=== PATIENT | male | born 1955 | race Caucasian/White ===

== ENCOUNTER 2020-12-12 11:33 | Inpatient (IN) | payer MEDICARE, MEDICAID ==
[~2020-12-12] VITALS: Ht 175.3 cm; Wt 52.1 kg
[2020-12-12 12:38] LABS: MEAN CORPUSCULAR HGB CONC 33.7 g/dL (33.2-36.2); MEAN PLATELET VOLUME 8.9 fL (7.4-10.4); PLATELET COUNT 207 x10^3/uL (130-400); RED CELL DISTRIBUTION WIDTH 13.3 % (9.4-14.8)
[2020-12-12 12:50] LABS: ANION GAP 8 mmol/L (5-15); CALCIUM 8.5 mg/dL (8.5-10.1); CHLORIDE 95 mmol/L (98-107)
[2020-12-12 13:00] LABS: ALANINE AMINOTRANSFERASE 21 U/L (12-78); ALKALINE PHOSPHATASE 48 U/L (45-117); BILIRUBIN,TOTAL 0.9 mg/dL (0.2-1.0); TOTAL PROTEIN 7.2 g/dL (6.4-8.2)
[2020-12-12 13:07] LABS: C-REACTIVE PROTEIN, QUANT > 19.00 mg/dL (0.02-0.49)
[2020-12-12 13:15] LABS: BAND#(MANUAL) 4.03 x10^3/uL; BANDS%(MANUAL) 37 % (0-7); LYMPH#(MANUAL) 0.22 x10^3/uL (1-3.4); LYMPHS% (MANUAL) 2 % (22-44); METAMYELOCYTES# (MANUAL) 0.87 x10^3/uL (0-0); METAMYELOCYTES% (MANUAL) 8 % (0-1); MONOS#(MANUAL) 0.33 x10^3/uL (0.3-2.7); MONOS% (MANUAL) 3 % (2-9); SEG#(MANUAL) 5.45 x10^3/uL (1.8-6.8); SEGS% (MANUAL) 50 % (42-75)
[2020-12-12 13:16] LABS: <PLATELET ESTIMATE> ADEQUATE; <PLT MORPHOLOGY> NORMAL PLT MORPH; <RBC MORPHOLOGY> NORMAL
[2020-12-12] MEDS ORDERED: AZITHROMYCIN 500 MG in SODIUM CHLORIDE 0.9% 250 ML IV ONE (13:39)
--- NOTE | 2020-12-12 13:41 | NUR ---
customer consulting manager note: Pt to room from [facility] peralta.
[2020-12-12] MEDS ORDERED: SODIUM CHLORIDE FLUSH 10ML SYR IVF ONE (14:00)
[2020-12-12] MEDS ORDERED: CEFTRIAXONE 1,000 MG in DEXTROSE 5% 50 ML IVPB ONE (14:00)
--- NOTE | 2020-12-12 15:00 | NUR ---
PT RESTING IN BED, PT A/O X4 WITH EQUAL AND UNLABORED BREATHS.. PT AWARE OF ED CARE PLAN. PT DENIED ANY CURRENT WANTS OR NEEDS.
[2020-12-12] MEDS ORDERED: TRAZODONE 50MG TABLET PO PRN (16:00)
[2020-12-12] MEDS ORDERED: ACETAMINOPHEN 325 MG TABLET PO PRN (16:00)
[2020-12-12] MEDS ORDERED: POTASSIUM CHLORIDE 20 MEQ TAB.ER.PRT PO ONE (16:00)
[2020-12-12] MEDS ORDERED: ONDANSETRON 2MG/ML, 2ML IVPush PRN (16:00)
[2020-12-12] MEDS ORDERED: CEFTRIAXONE 1,000 MG IM ONE (16:00)
[2020-12-12] MEDS ORDERED: POLYETHYLENE GLYCOL 17 GM PACKET PO PRN (16:00)
[2020-12-12] MEDS ORDERED: MELATONIN 5 MG TABLET PO PRN (16:00)
[2020-12-12] MEDS ORDERED: SODIUM CHLORIDE 0.9%, 500ML IVBOLUS ONE (16:00)
[2020-12-12] MEDS ORDERED: HYDROcodone/APAP 5/325 TABLET PO PRN (16:00)
[2020-12-12 16:14] LABS: HCT (SEDRATE) 40.9 % (39.2-51.8)
[2020-12-12 16:29] LABS: TROPONIN I < 0.015 ng/mL (0.000-0.045)
[2020-12-12] MEDS ORDERED: ENOXAPARIN 40 MG/0.4 ML ONE (16:39)
[2020-12-12] MEDS ORDERED: POTASSIUM CHLORIDE 20 MEQ TAB.ER.PRT ONE (16:39)
[2020-12-12 16:50] LABS: TROPONIN I < 0.015 ng/mL (0.000-0.045)
[2020-12-12] MEDS: ENOXAPARIN 40 MG/0.4 ML SQ SCH (16:52)
--- NOTE | 2020-12-12 18:50 | NUR ---
PT MEDICATED PER MAR
--- NOTE | 2020-12-12 19:29 | NUR ---
Note michelle in EDM - 12/12/20 at 1931 by JORGE PT RESTING IN BED, PT A/O X4 WITH EQUAL AND UNLABORED BREATHS.. PT AWARE OF ED CARE PLAN. PT DENIED ANY CURRENT WANTS OR NEEDS. PT SHOWING NO SIGNS OF REACTION.
--- NOTE | 2020-12-12 19:31 | NUR ---
PT RESTING IN BED, PT A/O X4 WITH EQUAL AND UNLABORED BREATHS.. PT AWARE OF ED CARE PLAN. PT DENIED ANY CURRENT WANTS OR NEEDS.
--- NOTE | 2020-12-12 21:51 | NUR ---
PT RESTING IN BED. PT DENIED ANY CURRENT WANTS OR NEEDS. PT AWARE OF CARE PLAN.
--- NOTE | 2020-12-12 22:14 | NUR ---
PT PROVIDED WATER AT PT REQUEST
--- NOTE | 2020-12-12 22:17 | NUR ---
REPORT GIVEN TO 353 FLOOR RN
[2020-12-12 22:54] VITALS: BP 120/65
[2020-12-12] MEDS: LIDODERM 5% PATCH TD PRN (23:18)
[2020-12-12] MEDS: ASCORBIC ACID 500 MG TABLET PO SCH (23:18)
[2020-12-13 06:18] LABS: MEAN CORPUSCULAR HEMOGLOBIN 29.6 pg (27.5-34.5); MEAN CORPUSCULAR HGB CONC 33.6 g/dL (33.2-36.2); MEAN PLATELET VOLUME 9.2 fL (7.4-10.4); PLATELET COUNT 172 x10^3/uL (130-400); RED CELL DISTRIBUTION WIDTH 13.6 % (9.4-14.8)
[2020-12-13 06:25] LABS: CHLORIDE 101 mmol/L (98-107)
[2020-12-13 06:37] LABS: ANION GAP 10 mmol/L (5-15); CALCIUM 8.2 mg/dL (8.5-10.1); CREATININE 0.38 mg/dL (0.7-1.3)
[2020-12-13 06:38] LABS: ALANINE AMINOTRANSFERASE 21 U/L (12-78); ALBUMIN 2.5 g/dL (3.4-5.0); ALKALINE PHOSPHATASE 51 U/L (45-117); BILIRUBIN,TOTAL 0.6 mg/dL (0.2-1.0); TOTAL PROTEIN 6.4 g/dL (6.4-8.2)
[2020-12-13 07:15] LABS: <PLATELET ESTIMATE> ADEQUATE; <PLT MORPHOLOGY> NORMAL PLT MORPH; <RBC MORPHOLOGY> NORMAL; BANDS%(MANUAL) 38 % (0-7); LYMPH#(MANUAL) 0.73 x10^3/uL (1-3.4); LYMPHS% (MANUAL) 6 % (22-44); MONOS#(MANUAL) 0.12 x10^3/uL (0.3-2.7); MONOS% (MANUAL) 1 % (2-9); SEG#(MANUAL) 6.66 x10^3/uL (1.8-6.8); SEGS% (MANUAL) 55 % (42-75)
[2020-12-13] MEDS: SENNA/DOCUSATE TABLET PO SCH (09:00)
[2020-12-13] MEDS ORDERED: OMNIPAQUE 350 MG/ML, 75ML BOTTLE ONE (09:05)
[2020-12-13] MEDS: ASCORBIC ACID 500 MG TABLET PO SCH ×2 (09:33→21:50)
[2020-12-13] MEDS: AZITHROMYCIN 500 MG TABLET PO SCH (09:34)
[2020-12-13] MEDS: ZINC SULFATE 220 MG CAPSULE PO SCH (09:34)
[2020-12-13 09:50] VITALS: BP 110/62
[2020-12-13] MEDS: CEFTRIAXONE 1,000 MG in DEXTROSE 5% 50 ML IVPB SCH (12:33)
[2020-12-13 13:52] VITALS: BP 104/60
[2020-12-13] MEDS: ACETAMINOPHEN 325 MG TABLET PO PRN (15:11)
[2020-12-13] MEDS: ENOXAPARIN 40 MG/0.4 ML SQ SCH (15:12)
[2020-12-13] MEDS ORDERED: OLANZAPINE 10 MG INJ IM PRN (18:30)
[2020-12-13 21:45] VITALS: BP 104/60
[2020-12-13] MEDS: LIDODERM 5% PATCH TD PRN (21:47)
[2020-12-13] MEDS: OLANZAPINE ODT 10MG PO SCH (21:50)
[2020-12-14 01:11] VITALS: BP 104/58
[2020-12-14 06:08] LABS: MEAN PLATELET VOLUME 9.2 fL (7.4-10.4); PLATELET COUNT 198 x10^3/uL (130-400); RED BLOOD COUNT 4.18 x10^6/uL (4.38-5.82); RED CELL DISTRIBUTION WIDTH 13.7 % (9.4-14.8)
[2020-12-14 06:19] LABS: CHLORIDE 105 mmol/L (98-107)
[2020-12-14 06:27] LABS: ANION GAP 7 mmol/L (5-15); CALCIUM 8.5 mg/dL (8.5-10.1); CREATININE 0.43 mg/dL (0.7-1.3)
[2020-12-14 07:01] LABS: LYMPH#(MANUAL) 0.77 x10^3/uL (1-3.4); LYMPHS% (MANUAL) 7 % (22-44); MONOS#(MANUAL) 0.66 x10^3/uL (0.3-2.7); MONOS% (MANUAL) 6 % (2-9)
[2020-12-14 07:02] LABS: METAMYELOCYTES# (MANUAL) 0.11 x10^3/uL (0-0); METAMYELOCYTES% (MANUAL) 1 % (0-1)
[2020-12-14 07:03] LABS: <PLATELET ESTIMATE> ADEQUATE; <PLT MORPHOLOGY> NORMAL PLT MORPH; <RBC MORPHOLOGY> NORMAL; BAND#(MANUAL) 1.54 x10^3/uL; BANDS%(MANUAL) 14 % (0-7); SEG#(MANUAL) 7.92 x10^3/uL (1.8-6.8); SEGS% (MANUAL) 72 % (42-75)
[2020-12-14] MEDS ORDERED: POTASSIUM CHLORIDE 20 MEQ TAB.ER.PRT PO ONE (07:30)
[2020-12-14 08:20] VITALS: BP 122/63
[2020-12-14] MEDS: ZINC SULFATE 220 MG CAPSULE PO SCH (08:27)
[2020-12-14] MEDS: ASCORBIC ACID 500 MG TABLET PO SCH (08:27)
[2020-12-14] MEDS: SENNA/DOCUSATE TABLET PO SCH (08:27)
[2020-12-14] MEDS: AZITHROMYCIN 500 MG TABLET PO SCH (08:28)
[2020-12-14 09:15] LABS: AMPHETAMINE SCREEN, URINE Negative (Negative); BARBITURATE SCREEN, URINE Negative (Negative); BENZODIAZEPINE SCREEN, URINE Negative (Negative); CANNABINOID SCREEN, URINE Positive (Negative); COCAINE SCREEN, URINE Negative (Negative); METHADONE SCREEN, URINE Negative (Negative); OPIATE SCREEN, URINE Negative (Negative)
[2020-12-14] MEDS: CEFTRIAXONE 1,000 MG in DEXTROSE 5% 50 ML IVPB SCH (12:05)
[2020-12-14 12:43] LABS: MEAN CORPUSCULAR HEMOGLOBIN 30.1 pg (27.5-34.5); MEAN CORPUSCULAR HGB CONC 33.9 g/dL (33.2-36.2); MEAN PLATELET VOLUME 8.8 fL (7.4-10.4); PLATELET COUNT 217 x10^3/uL (130-400); RED BLOOD COUNT 4.38 x10^6/uL (4.38-5.82); RED CELL DISTRIBUTION WIDTH 13.7 % (9.4-14.8)
[2020-12-14 13:00] LABS: BAND#(MANUAL) 0.69 x10^3/uL; BANDS%(MANUAL) 7 % (0-7); BASOS% (MANUAL) 1 % (0-1); EOS% (MANUAL) 1 % (1-7); LYMPH#(MANUAL) 1.08 x10^3/uL (1-3.4); LYMPHS% (MANUAL) 11 % (22-44); MONOS#(MANUAL) 1.08 x10^3/uL (0.3-2.7); MONOS% (MANUAL) 11 % (2-9); SEG#(MANUAL) 6.76 x10^3/uL (1.8-6.8); SEGS% (MANUAL) 69 % (42-75)
[2020-12-14 13:01] LABS: <PLATELET ESTIMATE> ADEQUATE; <PLT MORPHOLOGY> NORMAL PLT MORPH; <RBC MORPHOLOGY> NORMAL
[2020-12-14 13:35] VITALS: BP 116/63
[2020-12-14] MEDS: ENOXAPARIN 40 MG/0.4 ML SQ SCH (15:42)
[2020-12-14 19:16] VITALS: BP 129/63
[2020-12-14] MEDS: OLANZAPINE ODT 10MG PO SCH (20:12)
[2020-12-15 01:10] VITALS: BP 137/69
[2020-12-15 06:32] LABS: ANION GAP 7 mmol/L (5-15); CALCIUM 8.1 mg/dL (8.5-10.1); CHLORIDE 104 mmol/L (98-107)
[2020-12-15 06:33] LABS: CREATININE 0.34 mg/dL (0.7-1.3)
[2020-12-15 07:55] LABS: BASOPHILS % (AUTO) 0 % (0-1); EOSINOPHILS % (AUTO) 1 % (1-7); LYMPHOCYTES % (AUTO) 9 % (22-44); MEAN CORPUSCULAR HEMOGLOBIN 29.7 pg (27.5-34.5); MEAN CORPUSCULAR HGB CONC 33.7 g/dL (33.2-36.2); MEAN PLATELET VOLUME 9.1 fL (7.4-10.4); MONOCYTES % (AUTO) 18 % (2-9); NEUTROPHILS % (AUTO) 72 % (42-75); PLATELET COUNT 215 x10^3/uL (130-400); RED BLOOD COUNT 4.11 x10^6/uL (4.38-5.82); RED CELL DISTRIBUTION WIDTH 13.3 % (9.4-14.8)
[2020-12-15] MEDS: SENNA/DOCUSATE TABLET PO SCH (09:00)
[2020-12-15 10:00] VITALS: BP 161/77
[2020-12-15] MEDS ORDERED: POTASSIUM CHLORIDE 20 MEQ TAB.ER.PRT PO ONE (10:00)
[2020-12-15] MEDS: AZITHROMYCIN 500 MG TABLET PO SCH (10:19)
[2020-12-15 10:50] VITALS: BP 128/60
[2020-12-15] MEDS: CEFTRIAXONE 1,000 MG in DEXTROSE 5% 50 ML IVPB SCH (12:27)
[2020-12-15] MEDS ORDERED: OLANZAPINE ODT 10MG PO SCH (14:46)
[2020-12-15 16:00] VITALS: BP 143/70
[2020-12-15] MEDS: ENOXAPARIN 40 MG/0.4 ML SQ SCH (16:04)
[2020-12-15 20:16] VITALS: BP 127/74
[2020-12-15] MEDS: ACETAMINOPHEN 325 MG TABLET PO PRN (20:24)
[2020-12-16 00:12] VITALS: BP 145/54
[2020-12-16 07:43] VITALS: BP 153/71
[2020-12-16] MEDS: SENNA/DOCUSATE TABLET PO SCH (09:00)
[2020-12-16] MEDS: AZITHROMYCIN 500 MG TABLET PO SCH (09:21)
[2020-12-16 12:11] VITALS: BP 133/71
[2020-12-16] MEDS: CEFTRIAXONE 1,000 MG in DEXTROSE 5% 50 ML IVPB SCH (12:40)
[2020-12-16] MEDS ORDERED: AZIT500T10 PO (14:09)
[2020-12-16] MEDS ORDERED: OLAN10TA7 PO (14:09)
[2020-12-16] MEDS ORDERED: OLAN10VI2 IM (14:09)
[2020-12-16] MEDS: ENOXAPARIN 40 MG/0.4 ML SQ SCH (15:46)
== END 2020-12-16 18:01 | DRG 194 ==
LOC: SUATTDRO 14:47 → ED 17:25 → OBSVTOIN 18:11 → EDIP 18:11 → 3N 22:38
PROVIDERS: ADMIT Hospitalist; ATTEND Hospitalist
DX: J15.9 Unspecified bacterial pneumonia (principal); E87.1 Hypo-osmolality and hyponatremia; F23 Brief psychotic disorder; E87.6 Hypokalemia; Z20.822 Contact with and (suspected) exposure to COVID-19; F41.9 Anxiety disorder, unspecified; F32.9 Major depressive disorder, single episode, unspecified; F12.90 Cannabis use, unspecified, uncomplicated; Z59.0 Homelessness; Z78.1 Physical restraint status; Z82.49 Family history of ischemic heart disease and other diseases of the circulatory system
CPT/HCPCS: 36415; 71045; 71275; 80048; 80053; 80307; 82728; 83615; 83735; 84145; 84484; 85025; 85379; 85651; 86140; 87070; 87205; 93005; 96365; 96366; 99285; G0378; J0456; J0696; J1650; Q9967; U0005; J7040; J7050; U0003

== ENCOUNTER 2020-12-16 14:42 | Inpatient (IN) | payer MEDICARE, MEDICAID ==
[~2020-12-16] VITALS: Ht 177.8 cm; Wt 51.5 kg
[~2020-12-16 14:42] MED LIST: AZIT500T10 PO; OLAN10TA7 PO; OLAN10VI2 IM
[2020-12-16] MEDS ORDERED: DOCUSATE 100 MG CAPSULE PO PRN (17:00)
[2020-12-16] MEDS ORDERED: POLYETHYLENE GLYCOL 17 GM PACKET PO PRN (17:00)
[2020-12-16] MEDS ORDERED: ONDANSETRON ODT 4 MG PO PRN (17:00)
[2020-12-16] MEDS ORDERED: BISACODYL 10 MG SUPP PR PRN (17:00)
[2020-12-16 18:11] LABS: CHOL/HDL RATIO 2.7; FREE T4 (FREE THYROXINE) 1.32 ng/dL (0.76-1.46); LDL/HDL RATIO 1.3 (0.5-3.0)
[2020-12-16 19:10] VITALS: BP 150/83
[2020-12-16 19:35] VITALS: BP 120/66
[2020-12-16] MEDS: OLANZAPINE ODT 10MG PO SCH (21:02)
[2020-12-17 07:37] VITALS: BP 136/70
[2020-12-17] MEDS ORDERED: AZITHROMYCIN 250 MG TABLET PO SCH (09:00)
[2020-12-17 19:34] VITALS: BP 125/71
[2020-12-17] MEDS: OLANZAPINE ODT 10MG PO SCH (20:08)
[2020-12-17] MEDS: ACETAMINOPHEN 325 MG TABLET PO PRN (20:08)
[2020-12-18 07:20] VITALS: BP 121/75
[2020-12-18 18:37] VITALS: BP 119/71
[2020-12-18] MEDS: OLANZAPINE ODT 10MG PO SCH (20:06)
[2020-12-18] MEDS: ACETAMINOPHEN 325 MG TABLET PO PRN (20:06)
[2020-12-19 07:41] VITALS: BP 136/80
[2020-12-19] MEDS ORDERED: OLAN10TA7 PO (14:09)
== END 2020-12-19 15:00 | disposition home or self-care (01) | DRG 885 ==
LOC: 3E 18:00
PROVIDERS: ADMIT Psychiatry & Neurology Psychosomatic Medicine; ATTEND Psychiatry & Neurology Psychosomatic Medicine
DX: F32.2 Major depressive disorder, single episode, severe without psychotic features (principal); G47.00 Insomnia, unspecified; F12.90 Cannabis use, unspecified, uncomplicated; Z87.01 Personal history of pneumonia (recurrent); Z59.0 Homelessness
CPT/HCPCS: 36415; 80061; 84439; 84443